=== PATIENT | female | born 1990 | race Asian ===

== ENCOUNTER 2021-07-03 12:18 | Inpatient (IN) | payer OTHER ==
[~2021-07-03] VITALS: Ht 157.5 cm; Wt 59.1 kg
[2021-07-03] VITALS (28 sets, daily range): BP systolic 91–129; BP diastolic 54–72; PULSE 68–98; TEMP 97.7–99.3
--- NOTE | 2021-07-03 12:25 | NUR ---
1225- 39.1 G2L1 here on unit with c/o vaginal bleeding. Ambulatory to LDR3 with spouse. Reports normal movement. Denies any LOF. Reports rare contraction. Changes into clean gown. Panty liner noted to be 25% saturated with dark red blood. Pt states this pad was placed 30min ago. Denies recent intercourse. 1233- EFM explained and placed. VS obtained. Assessment completed. 1305- Dr. Langley updated on pt. See physician notification.
[2021-07-03] MEDS ORDERED: PRENATAL TABLET PO (12:51)
--- NOTE | 2021-07-03 14:05 | NUR ---
1405- IV to left hand. LR bolus infusing. Plan of care reviewed with pt and spouse who verbalize understanding.
--- NOTE | 2021-07-03 15:29 | NUR ---
Phone call received from Dr. Langley. See physician notification. Plan of care reviewed with patient who verbalizes understanding. 1605- Consent forms explained and signed. 1640- Pitocin induction reviewed with patient who verbalizes understanding. Pitocin started at 2mu per orders.
[2021-07-03 16:01] LABS: BASO % 0.3 % (0.0-2.0); EOS % 0.2 % (0-4.0); GRAN # 7.5 K/mm3 (1.4-6.5); GRAN % 72.4 % (42.2-75.2); HEMOGLOBIN 12.1 g/dl (12.5-16.0); LYMPH # 2.1 K/mm3 (1.2-3.4); LYMPH % 20.3 % (20.0-51.0); MEAN CELL VOLUME 94 fl (80.0-100.0); MEAN CORPUSCULAR HEMOGLOBIN 32 pg (27.0-31.0); MEAN CORPUSCULAR HGB CONC 34 g/dl (33.0-37.0); MEAN PLATELET VOLUME 10.8 fl (7.4-10.4); MONO # 0.7 K/mm3 (0.1-0.6); MONO % 6.3 % (1.7-9.3); PLATELET COUNT 227 K/mm3 (130-400); RED BLOOD COUNT 3.82 M/mm3 (4.10-5.30); REDCELL DISTRIBUTION WIDTH-CV 12.8 % (11.5-14.5)
--- NOTE | 2021-07-03 18:30 | NUR ---
1829- PT IN BED BREATHING THROUGH CONTRACTIONS. REPORT RECEIVED. 1919- PT CALLS OUT FEELING MORE UNCOMFORTABLE. 1924- NURSE TO BEDSIDE. SVE BY THIS NURSE -. PLAN OF CARE DISCUSSED AND PT VERBALIZES UNDERSTANDING. SHE DENIES FURTHER NEEDS AT THIS TIME. 1999- PT CALLS OUT STATING SHE FEELS PRESSURE. NURSE TO BEDSIDE. SVE -2. REASSURED PT THAT THIS WAS GOOD PROGRESS AND ENCOURAGED HER TO CALL OUT AGAIN IF SHE FEELS MORE PRESSURE. PT CONTINUES TO BREATH THROUGH CONTRACTIONS WITH AT BEDSIDE. 2017- PT CALLS OUT STATING SHE IS PUSHING. NURSE TO BEDSIDE. SVE /+2. ENCOURAGED PT TO CONTINUE BREATHING SO SHE WOULD NOT BEAR DOWN MUCH SPONTANEOUSLY. DR CANTU CALLED FOR DELIVERY AND HE IS ON HIS WAY. 2029- DR CANTU AT BEDSIDE. PT POSITIONED IN FOOTPLATES AND ENCOURAGED TO PUSH WITH CONTRACTIONS. 2035- SPONTANEOUS VAGINAL DELIVERY OF VIABLE MALE, VIGOROUS, TO MOTHER'S ABDOMEN AND CARE OF NURSERY STAFF. 2039- SPONTANEOUS DELIVERY OF PLACENTA, EXAMINED BY DR CANTU. REPAIR IN PROGRESS. 2044- RECOVERY STARTED. 2049- REPAIR COMPLETE. PERICARE PROVIDED AND ICEPACK TO PERINEUM. FEET DOWN FROM FOOTPLATES.
[2021-07-04] VITALS: BP 106/60; PULSE 76; TEMP 98.6
[2021-07-04 03:10] VITALS: BP 104/55; PULSE 76; TEMP 98.3
[2021-07-04 08:00] VITALS: BP 90/64; PULSE 92; TEMP 98.1
[2021-07-04] MEDS ORDERED: IBU600 MG PO (08:40)
--- NOTE | 2021-07-04 10:14 | NUR ---
Initial visit; Patient thanked Dairy Clerk for visiting her and wishing her and her new son well. Dairy Clerk offered Blessings for the family.
[2021-07-04 15:55] VITALS: BP 100/57; PULSE 81; TEMP 98.6
[2021-07-04 20:04] VITALS: BP 94/54; PULSE 96; TEMP 99.1
[2021-07-05 08:51] VITALS: BP 112/69; PULSE 68; TEMP 98.1
== END 2021-07-05 13:42 | disposition home or self-care (01) | DRG 807 ==
LOC: LDRO 12:18 → LDR 12:25 → LDRO 13:00 → LDR 13:01 → OB 13:01
PROVIDERS: ADMIT Obstetrics & Gynecology
PROC: 10E0XZZ Delivery of Products of Conception, External Approach (ICD-10-PCS; principal; 2021-07-03)
PROC: 0KQM0ZZ Repair Perineum Muscle, Open Approach (ICD-10-PCS; 2021-07-03)
PROC: 3E033VJ Introduction of Other Hormone into Peripheral Vein, Percutaneous Approach (ICD-10-PCS; 2021-07-03)
DX: O99.02 Anemia complicating childbirth (principal); Z37.0 Single live birth; D64.9 Anemia, unspecified; O76 Abnormality in fetal heart rate and rhythm complicating labor and delivery; O70.1 Second degree perineal laceration during delivery; O69.81X0 Labor and delivery complicated by cord around neck, without compression, not applicable or unspecified; Z3A.39 39 weeks gestation of pregnancy
CPT/HCPCS: J2590; J7120